=== PATIENT | female | born 1960 | race Caucasian/White ===

== ENCOUNTER 2020-05-03 15:02 | Emergency (ER) | payer BC ==
[~2020-05-03] VITALS: Ht 165.1 cm; Wt 81.6 kg
[2020-05-03 15:20] VITALS: BP 154/87
[2020-05-03 15:23] VITALS: BP 154/87
--- NOTE | 2020-05-03 15:55 | ER.PDOC ---
General Chief Complaint: Nausea,Vomiting,Diarrhea Stated Complaint: NAUSEA AND FEVER Time seen by MD: 16:00 Source: patient Exam Limitations: no limitations History of Present Illness Allergies: Coded Allergies: amoxicillin (Verified Allergy, Unknown, 05/03/20) ceftriaxone (Verified Allergy, Unknown, 05/03/20) ciprofloxacin (Verified Allergy, Unknown, 05/03/20) clavulanic acid (Verified Allergy, Unknown, 05/03/20) clindamycin (Verified Allergy, Unknown, 05/03/20) gentamicin (Verified Allergy, Unknown, 05/03/20) latex (Verified Allergy, Unknown, 05/03/20) levofloxacin (Verified Allergy, Unknown, 05/03/20) metronidazole (Verified Allergy, Unknown, 05/03/20) morphine (Verified Allergy, Unknown, 05/03/20) piperacillin (Verified Allergy, Unknown, 05/03/20) tazobactam (Verified Allergy, Unknown, 05/03/20) vancomycin (Verified Allergy, Unknown, 05/03/20) Vital Signs First Vital Signs Date Time Temp Pulse Resp B/P (MAP) Pulse Ox O2 Delivery O2 Flow Rate FiO2 05/03/20 15:20 97.8 81 18 154/87 (109) 98 Room Air Last Vital Signs Date Time Temp Pulse Resp B/P (MAP) Pulse Ox O2 Delivery O2 Flow Rate FiO2 05/03/20 15:23 97.8 81 18 154/87 (109) 98 Room Air Past Medical History Medical History: diabetes, thyroid disease, other Surgical History: appendectomy, hysterectomy, knee, shoulder, other Social History Alcohol Use: none Drug Use: none Physical Exam General Appearance: No Apparent Distress HEENT: PERRL/EOMI, Normal ENT Inspection, TMs Normal, Pharynx Normal Neck: Non-Tender, Full Range of Motion, Supple, Normal Inspection Respiratory: chest non-tender, lungs clear, normal breath sounds, no respiratory distress, no accessory muscle use Cardiovascular: Normal Peripheral Pulses, Regular Rate, Rhythm, No Edema, No Gallop, No JVD, No Murmur Gastrointestinal: Normal Bowel Sounds, Non Tender, Soft Back: Normal Inspection, No CVA Tenderness, No Vertebral Tenderness Extremities: Normal Range of Motion, Non-Tender, Normal Inspection, No Pedal Edema, No Calf Tenderness, Normal Capillary Refill, Pelvis Stable 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, No Motor/Sensory Deficits, Alert, Normal Mood/Affect, Oriented x 3 Skin: Normal Color, Warm/Dry Lymphatic: No Adenopathy Results/Orders Results/Orders Orders - DIMITRIOS RUIZ MD Covid19 Antigen Anjelica Teodora (05/03/20 15:26) Xr Chest 1v (05/03/20 15:26) Vital Signs Date Time Temp Pulse Resp B/P (MAP) Pulse Ox O2 Delivery O2 Flow Rate FiO2 05/03/20 15:23 97.8 81 18 154/87 (109) 98 Room Air 05/03/20 15:20 97.8 81 18 05/03/20 15:20 97.8 81 18 98 05/03/20 15:20 97.8 81 18 154/87 (109) 98 Room Air Laboratory Tests Test 05/03/20 15:36 SARS-CoV-2 Antigen (Rapid) NEGATIVE (NEGATIVE) ER DEPART Departure Time of Disposition: 16:00 Disposition: 01 HOME, SELF-CARE Impression: Primary Impression: Viral syndrome Condition: Stable Referrals: PCP,UNKNOWN (PCP) PRIMARY CARE PROVIDER Duration or Time Spent with Pa: 15m DIMITRIOS RUIZ MD May 03, 2020 15:55
--- NOTE | 2020-05-03 16:04 | DIREP ---
PROCEDURE:CHEST 1 VIEW COMPARISON:None. INDICATIONS:fever FINDINGS: LUNGS/PLEURA:No significant pulmonary parenchymal abnormalities. No effusions. VASCULATURE:Normal. Unremarkable pulmonary vasculature. CARDIAC:Normal. No cardiac silhouette abnormality or cardiomegaly. MEDIASTINUM:Normal. No visible mass or adenopathy. BONES:No acute pathology. OTHER:Negative. CONCLUSION:No acute cardiac or pulmonary disease. Dictated by: Jai Epps M.D. on 05/03/2020 at 04:00 PM
== END 2020-05-03 16:25 | disposition home or self-care (01) ==
LOC: ER 15:02
DX: B34.9 Viral infection, unspecified (principal); Z20.822 Contact with and (suspected) exposure to COVID-19; Z88.8 Allergy status to other drugs, medicaments and biological substances; Z88.6 Allergy status to analgesic agent; Z88.1 Allergy status to other antibiotic agents; Z91.040 Latex allergy status
CPT/HCPCS: 71045; 87426; 99284